=== PATIENT | female | born 1995 | race Caucasian/White ===

== ENCOUNTER 2016-08-10 14:26 | Inpatient (IN) | payer MEDICAID ==
[~2016-08-10] VITALS: Ht 162.6 cm; Wt 63.6 kg
[~2016-08-10 14:26] MED LIST: ONDA4TAB14 PO; PRENAT PO
[2016-08-10 14:35] VITALS: Ht 162.6 cm; Wt 63.6 kg
[2016-08-10 14:37] VITALS: BP 149/100; PULSE 81; RESP 20
[2016-08-10 15:19] LABS: ADD SCAN DIFF NO
[2016-08-10 15:21] LABS: BASOPHILS % 0.5 % (0.0-2.0); EOSINOPHILS # 0.1 10^3/ul (0.0-0.5); EOSINOPHILS % 1.6 % (0.0-7.0); HEMATOCRIT 32.6 % (37.0-47.0); LYMPHOCYTES # 2.3 10^3/ul (0.8-2.9); LYMPHOCYTES % 26.5 % (15.0-51.0); MEAN CORPUSCULAR HEMOGLOBIN 31.3 pg (29.0-33.0); MEAN CORPUSCULAR HGB CONC 33.7 g/dl (32.0-37.0); MEAN CORPUSCULAR VOLUME 92.9 fl (82.0-101.0); MEAN PLATELET VOLUME 10.7 fl (7.4-10.4); MONOCYTE # 0.6 10^3/ul (0.3-0.9); MONOCYTES % 6.8 % (0.0-11.0); NEUTROPHIL # 5.6 10^3/ul (1.6-7.5); NEUTROPHILS % 64.4 % (39.0-77.0); PLATELET COUNT 309 10^3/UL (140-415); RED BLOOD COUNT 3.51 10^6/ul (4.20-5.40); RED CELL DISTRIBUTION WIDTH 13.3 % (11.5-14.5); WHITE BLOOD COUNT 8.7 10^3/ul (4.8-10.8)
[2016-08-10 15:23] LABS: ADD UMIC YES; URINE BILIRUBIN (Dip) NEGATIVE (NEGATIVE); URINE BLOOD (Dip) NEGATIVE (NEGATIVE); URINE COLOR LT. YELLOW (YELLOW); URINE GLUCOSE (Dip) NEGATIVE (NEGATIVE); URINE KETONES (Dip) NEGATIVE (NEGATIVE); URINE LEUKOCYTE ESTERASE (Dip) TRACE (NEGATIVE); URINE NITRITE (Dip) NEGATIVE (NEGATIVE); URINE TOTAL PROTEIN (Dip) 1+ (NEGATIVE); URINE UROBILINOGEN (Dip) 0.2 E.U./dL (0.1-1.0)
[2016-08-10] MEDS ORDERED: LABETALOL 200 MG TAB PO ONE (15:30)
[2016-08-10 15:44] LABS: ALBUMIN 3.9 g/dl (3.3-4.9)
[2016-08-10 15:45] LABS: POTASSIUM 4.1 mmol/L (3.5-5.1)
[2016-08-10 15:47] LABS: ALBUMIN/GLOBULIN RATIO 1.18; BILIRUBIN,INDIRECT 0.1 mg/dl (0-1.1); BILIRUBIN,TOTAL 0.1 mg/dl (0.2-1.3); CREATININE 0.52 mg/dl (0.44-1.00); TOTAL PROTEIN 7.2 g/dl (6.1-8.1); URIC ACID 4.9 mg/dl (3.1-7.9)
[2016-08-10 15:48] LABS: CALCIUM 9.3 mg/dl (8.4-10.2)
[2016-08-10 16:16] LABS: BACTERIA,URINE FEW; SQUAMOUS EPITHELIAL CELL,UR MANY; URINE RBCS 0-2 /HPF (0)
--- NOTE | 2016-08-10 16:23 | HP ---
Date/Time of Note Date/Time of Note DATE: 08/10/16 TIME: 16:18 OB - History Hx of Present Free Text/Dictation admittd through NST for observation of BP >150/100 Chief Complaint: Denies headache , blurred vision, or epigastric pain Last Menstrual Period: Dec 14, 2015 Estimated Due Date: Sep 19, 2016 : 1 Para: 0 Care: Good Care Ultrasounds: Normal mid trimester US Obstetrical Complications: Gestational Hypertension Medical Complications: Other (Patient with cerebral palsy ) Past Family/Social History * Past Medical, Surgical, Family and Obstetric Histories reviewed from chart. Blood Type: A+ Rubella: immune RPR/VDRL: Negative GBS Status: Unknown HBsAG: Negative OB Admission Exam Vital Signs Vital Signs Vital Signs Date Time Temp Pulse Resp B/P Pulse Ox O2 Delivery O2 Flow Rate FiO2 08/10/16 14:37 97.5 81 20 149/100 Room Air Physical Exam HEENT: WNL Heart: Rhythm Normal Lungs: Clear, Equal Abdomen: WNL Extremities: Normal Reflexes: Normal Cervical Dilatation: None Effacement: 0% Station: -3 Membranes: Intact Heart Rate: 140's Accelerations: Accelerations Present Decelerations: No Decelerations Varibility: Moderate Contractions on Admission: None Last 72 hours Lab Results CBC & BMP 08/10/16 15:00 Liver Function Test 08/10/16 15:00 Alanine Aminotransferase (ALT/SGPT) 22 Albumin 3.9 Alkaline Phosphatase 164 H Aspartate Amino Transf (AST/SGOT) 20 Direct Bilirubin 0.00 Total Protein 7.2 OB Assessment/Plan Other Assessment: PIH: R/O severe PIH 34 + weeks gestation Other plan: will start on steroids start on antihypertensives 24 hr urine collection for protein and Cr/Cl RADHA TOWNSEND MD Aug 10, 2016 16:23
[2016-08-10] MEDS ORDERED: BETAMET NA PHOS/AC(6 MG/ML) 5ML INJ IM ONE (16:30)
[2016-08-10] MEDS: LABETALOL 200 MG TAB PO SCH (21:55)
[2016-08-11] MEDS: LABETALOL 200 MG TAB PO SCH ×2 (08:41→21:05)
[2016-08-11] MEDS ORDERED: BETAMET NA PHOS/AC(6 MG/ML) 5ML INJ IM ONE (16:30)
[2016-08-11 17:04] LABS: SCRET 0.52 mg/dl (0.44-1.00); URINE TOTAL PROTEIN 14.5 mg/dl
--- NOTE | 2016-08-11 18:27 | PN ---
Date/Time of Note Date/Time of Note DATE: 08/11/16 TIME: 18:25 OB Subjective Subjective Subjective No C/O H/A , B/V or E/P OB Objective Objective Objective BPs are stable on labetalol general P/E is unchanged HEENT: WNL Heart: Rhythm Normal Lungs: Clear, Equal Abdomen: WNL Extremities: Normal Reflexes: Normal OB Assessment/Plan Other Assessment: PIH at 34 -35 weeks Other plan: eriberto consult in RADHA GARCIA MD Aug 11, 2016 18:26
[2016-08-12] MEDS ORDERED: OXYTOCIN 30 UNITS/LR 500 ML BAG IV ONE (07:00)
[2016-08-12] MEDS: LABETALOL 200 MG TAB PO SCH (08:35)
[2016-08-12] MEDS ORDERED: LACTATED RINGER'S 1,000 ML IV SCH ×3 (12:30→21:12)
[2016-08-12 14:24] LABS: ADD SCAN DIFF NO
[2016-08-12 14:27] LABS: BASOPHILS % 0.1 % (0.0-2.0); HEMOGLOBIN 9.5 g/dl (12.0-16.0); LYMPHOCYTES # 1.3 10^3/ul (0.8-2.9); LYMPHOCYTES % 11.8 % (15.0-51.0); MEAN CORPUSCULAR HGB CONC 32.8 g/dl (32.0-37.0); MEAN CORPUSCULAR VOLUME 94.8 fl (82.0-101.0); MEAN PLATELET VOLUME 10.6 fl (7.4-10.4); MONOCYTE # 0.6 10^3/ul (0.3-0.9); NEUTROPHIL # 9.2 10^3/ul (1.6-7.5); NEUTROPHILS % 82.6 % (39.0-77.0); PLATELET COUNT 268 10^3/UL (140-415); RED BLOOD COUNT 3.06 10^6/ul (4.20-5.40); RED CELL DISTRIBUTION WIDTH 14.1 % (11.5-14.5); WHITE BLOOD COUNT 11.1 10^3/ul (4.8-10.8)
--- NOTE | 2016-08-12 14:33 | RADRPT ---
PROCEDURE: Biophysical profile CLINICAL INDICATION: distress TECHNIQUE: Color and blanco-scale ultrasound images of an intrauterine gestation were obtained. COMPARISON: None FINDINGS: A single live intrauterine gestation is identified in subtalar position with an estimated hear t rate of 137 beats per minute. The placenta is located anteriorly and has a grade 2. The cervix i s obscured by head shadows. No evidence of abruption identified. CHARLEY is 9.3 cm. movement 2/2. tone 2/2. breathing movement 2/2. Qualitative AFV 2/2 Total biophysical profile 01/04 IMPRESSION: 01/04 biophysical profile. RPTAT: AA .Max Kumar MD, Date Time Electronically viewed and signed by .Max Kumar MD, on 08/12/2016 14:32 .P/
[2016-08-12 14:36] LABS: INR 0.89; PARTIAL THROMBOPLASTIN TIME 23.6 Sec (25.0-35.0); PT RATIO 0.9
--- NOTE | 2016-08-12 15:39 | CONS ---
DATE OF ADMISSION: 08/10/2016 DATE OF CONSULTATION: 08/12/2016 HISTORY OF PRESENT ILLNESS: The patient was admitted from the perinatology clinic 2 days ago after blood pressure was 164/110 and the patient had some palpitations. Upon arrival to the hospital, malini arently she was placed on labetalol 200 mg twice a day, and her blood pressures have been in the nor mal to moderate range; however, starting today she started having again severe range blood pressures . PAST MEDICAL HISTORY: Significant for the patient experienced cerebral palsy after and said s he had some left lower extremity movement problems. However, she is very functional and smart. SURGICAL HISTORY: Unaware. ALLERGIES: NO KNOWN DRUG ALLERGIES. REVIEW OF SYSTEMS: Negative, except for what is mentioned above. The last blood pressure I am aware of, she was in the moderate range. PHYSICAL EXAMINATION: Deferred. Liver functions are normal. A 24-hour urine for protein was 235.6 mg. IMPRESSION: Intrauterine at 34 weeks and 4 days, with severe gestational hypertension, un responsive to blood pressure medication. She has higher than normal protein in the urine; however, the total protein in the 24-hour urine is less than 300 mg, but given the age of the patient, which she is young at 21, with her first , positive protein in the urine and severe range blood pressure, she could make the diagnosis for severe preeclampsia. heart tones for the past 24 hours have not been reassuring. They are in the minimal range, at times with very, very low variability, but no decelerations. The baby is intrauterine growth restr icted; however, the umbilical artery Doppler study 2 days ago was normal. RECOMMENDATIONS: Given severe blood pressure range despite medication, as well as at this point con cerning heart tone status, I do recommend delivery. The patient apparently has a problem with her left hip and may not be able to deliver vaginally, and after a discussion with her, if she deci vani to do a , so be it. Magnesium sulfate after delivery is recommended to be continued 24 hours for seizure prophylaxis and since severe preeclampsia is more likely. Dictated By: EDVYN TORREZ MD ST/NTS Conf#: [id number] DID#: [id number]
[2016-08-12] MEDS ORDERED: OXYTOCIN 30 UNITS/LR 500 ML IV SCH ×2 (17:00→21:12)
[2016-08-12] MEDS ORDERED: CEFAZOLIN 2 GM/50 ML (PMX) 50 ML IVPB SCH (17:00)
[2016-08-12] MEDS ORDERED: MISOPROSTOL 200 MCG TAB PR PRN ×2 (17:00→21:30)
[2016-08-12] MEDS ORDERED: METHYLERGONOVINE 0.2 MG INJ IM PRN ×2 (17:00→21:30)
[2016-08-12] MEDS ORDERED: OXYTOCIN 30 UNITS/LR 500 ML IV PRN ×2 (17:00→21:30)
[2016-08-12] MEDS ORDERED: CARBOPROST 250 MCG INJ IM PRN ×2 (17:00→21:30)
[2016-08-12] MEDS ORDERED: PHENYLephrine (100 MCG/ML) 5ML SYG ONE (17:33)
[2016-08-12] MEDS ORDERED: OXYTOCIN 10 UNIT INJ ONE (17:33)
[2016-08-12] MEDS ORDERED: morphine SULFATE/PF (10 MG/10 ML) INJ ONE (17:33)
[2016-08-12] MEDS ORDERED: ONDANSETRON 4 MG INJ ONE (17:33)
--- NOTE | 2016-08-12 17:34 | CONS ---
DATE OF ADMISSION: 08/10/2016 DATE OF CONSULTATION: 08/12/2016 TYPE OF CONSULTATION: Neonatology. REQUESTING PHYSICIAN: RADHA TOWNSEND MD. REASON FOR CONSULTATION: Prematurity with blood pressure problems and decreased variability of the heart rate. HISTORY OF THE PRESENT ILLNESS: Mother is a 21-year-old 1 who has been admitted on 08/11/19 17. Her gestational age today is 34 and 4/7 week. She has cerebral palsy and has had several surge duane. She has completed high school, but was not working. She is . Her was complicated by high blood pressure. She is also on labetalol. S he has received magnesium and has received 2 doses of betamethasone. A decision was to do section because of the decreasing variability and continued blood pressure problems. I spoke to her with the family including and a brother with his girlfriend and grandmother i n the room. I painted possible scenarios of respiratory distress, feeding difficulties, infection, apnea, hyperbilirubinemia and other problems related to prematurity and expected hospital stay until close to the due date or possibly earlier if things go relatively smoothly. By the end of the interview, she had no further questions. Possible need for procedures such as umb ilical arterial and venous catheterization, peripheral arterial catheterization and central venous l pippa as well as a spinal tap and blood transfusions were discussed due to consent needs. She had no further questions at the end of this interview. Thank you very much for allowing me to assist in the care of this family. Dictated By: SUZE ARVIZU/VEL Conf#: [id number] DID#: [id number]
[2016-08-12] MEDS ORDERED: MAGNESIUM SULFATE 20 GM/500 ML 500 ML IV SCH (18:33)
--- NOTE | 2016-08-12 18:33 | OPR ---
Operative Report Planned Procedure Procedure date Aug 12, 2016 Procedure(s) primary C/S Performed by: RADHA TOWNSEND MD Assisting provider: BRUNO SUNG MD Anesthesiologist: GULSHAN BEGUM MD Pre-procedure diagnosis 34 + weeks gesation severe PIH inability to have vaginal delivery (had 2 hip surgeries for cerebral palsy) Anesthesia Type: spinal Procedure Description Under satisfactory anaesthesia a Pfannenstiel incision was made two fingerbreadth above and parallel to the symphysis of pubis. Incision was extended laterally to the border of the Recti muscles on either sides. Incision was carried down with sharp and blunt dissection until fascia was reached. Anterior Recti muscle fascia was incised in mid portion and incision extended laterally to the border of skin incision. Fascia was mobilized from muscle superiorly and Recti muscles were from midline using sharp and blunt dissection. Peritoneum was visualized; Avoiding bowel and bladder it was incised . Incision was extended superiorly and inferiorly. Bladder blade was placed. Posterior peritoneum covering the lower segment of the uterus and lower segment of the uterus were incised. Incision was extended laterally to the border of Round Lig. on either sides and baby was delivered from OP. position . Amniotic fluid appeared clear. Cord blood was obtained and cord had 3 vessels . Placenta was delivered spontaneously and appeared intact and complete. Intrauterine cavity was rubbed with a laparotomy sponge. Uterine incision was closed in 2 layers using running stitches of No1 Monocryl. Hemostasis appeared secure. Ovaries and Fallopian tubes were within normal limits. Announcing needle, lap sponge and instrument count to be correct abdomen was closed in layers as follows: Peritoneum and Recti muscles with running stitches of 20 Vicryl. Fascia with running stitch of No 1 PDS. Subcutaneous tissue with running stitches of 20 Chromic and skin was closed using deep. Patient tolerated the procedure well and was transferred to [facility] in good condition. Post-Procedure Post-procedure diagnosis S/P C/S Findings: Live Baby Specimen removed: No Complications: None Pt Condition post procedure: stable Disposition: PACU Physician Certification I, the undersigned physician, hereby certify that I have discussed the procedure described in this consent form with this patient (or the patient's legal counter sales representative), including: * The risk and benefits of the procedure; * Any adverse reactions that may reasonably be expected to occur; * Any alternative efficacious methods of treatment which may be medically viable ; * The potential problems that may occur during recuperation; * Potential for blood transfusion and associated risks/benefits; and * Any research or economic interest I may have regarding this treatment. I further certify that the patient/legally responsible person was encouraged to ask question and that all questions were answered. RADHA TOWNSEND MD Aug 12, 2016 18:33
[2016-08-12] MEDS ORDERED: MAGNESIUM SULFATE 4 GM/100 ML 100 ML IV SCH ×2 (19:00→20:00)
[2016-08-12] MEDS ORDERED: KETOROLAC 30 MG INJ IV STA (19:54)
[2016-08-12] MEDS ORDERED: LABETALOL 200 MG TAB PO SCH (21:00)
[2016-08-12 21:30] VITALS: BP 161/85; PULSE 103; RESP 18
[2016-08-12] MEDS ORDERED: ACETAMINOPHEN/CODEINE #3 TAB PO PRN ×2 (21:30)
[2016-08-12] MEDS ORDERED: LANOLIN 7 GM TUBE TOP PRN (21:30)
[2016-08-12 22:30] VITALS: BP 145/75; PULSE 88; RESP 18
[2016-08-12 23:40] VITALS: BP 145/79; PULSE 94; RESP 18
[2016-08-13] VITALS (17 sets, daily range): BP systolic 127–162; BP diastolic 75–98; PULSE 77–95; RESP 16–18
[2016-08-13] MEDS: CEFAZOLIN 2 GM/50 ML (PMX) 50 ML IV SCH ×2 (03:57→11:55)
[2016-08-13] MEDS ORDERED: CARBOPROST 250 MCG INJ IM PRN (04:00)
[2016-08-13] MEDS ORDERED: OXYTOCIN 30 UNITS/LR 500 ML IV PRN (04:00)
[2016-08-13] MEDS ORDERED: NA PHOSPHATE/BIPHOS 133 ML ENEMA PR PRN (04:00)
[2016-08-13] MEDS ORDERED: MISOPROSTOL 200 MCG TAB PR PRN (04:00)
[2016-08-13] MEDS ORDERED: LANOLIN 7 GM TUBE TOP PRN (04:00)
[2016-08-13] MEDS ORDERED: METHYLERGONOVINE 0.2 MG INJ IM PRN (04:00)
[2016-08-13] MEDS ORDERED: ACETAMINOPHEN/CODEINE #3 TAB PO PRN (04:00)
[2016-08-13] MEDS: LACTATED RINGER'S 1,000 ML IV SCH ×2 (04:39→14:18)
[2016-08-13] MEDS: MAGNESIUM SULFATE 20 GM/500 ML 500 ML IV SCH (05:50)
[2016-08-13] MEDS: CLINDAMYCIN 300 MG CAP PO SCH ×3 (05:51→17:49)
[2016-08-13 08:19] LABS: ADD SCAN DIFF NO
[2016-08-13 08:28] LABS: BASOPHILS % 0.1 % (0.0-2.0); EOSINOPHILS % 0.1 % (0.0-7.0); HEMATOCRIT 29.8 % (37.0-47.0); HEMOGLOBIN 9.8 g/dl (12.0-16.0); LYMPHOCYTES # 1.8 10^3/ul (0.8-2.9); MEAN CORPUSCULAR HEMOGLOBIN 31.5 pg (29.0-33.0); MEAN CORPUSCULAR HGB CONC 32.9 g/dl (32.0-37.0); MEAN CORPUSCULAR VOLUME 95.8 fl (82.0-101.0); MEAN PLATELET VOLUME 11.1 fl (7.4-10.4); MONOCYTE # 0.8 10^3/ul (0.3-0.9); NEUTROPHIL # 13.4 10^3/ul (1.6-7.5); NEUTROPHILS % 83.3 % (39.0-77.0); PLATELET COUNT 264 10^3/UL (140-415); RED BLOOD COUNT 3.11 10^6/ul (4.20-5.40); RED CELL DISTRIBUTION WIDTH 13.9 % (11.5-14.5); WHITE BLOOD COUNT 16.1 10^3/ul (4.8-10.8)
[2016-08-13] MEDS ORDERED: SENNA/DOCUSATE NA (8.6MG/50MG) TAB PO SCH (09:00)
[2016-08-13] MEDS: LABETALOL 200 MG TAB PO SCH (09:09)
[2016-08-13] MEDS: SENNA/DOCUSATE NA (8.6MG/50MG) TAB PO SCH ×2 (09:10→22:55)
[2016-08-13] MEDS ORDERED: BISACODYL 10 MG SUPP PR PRN (10:00)
[2016-08-13] MEDS: OXYCODONE/ACETAMINOPHEN (5/325) TAB PO PRN (13:30)
--- NOTE | 2016-08-13 15:48 | PN ---
Date/Time of Note Date/Time of Note DATE: 08/13/16 TIME: 15:45 Assessment/Plan VTE Prophylaxis VTE Prophylaxis Intervention: ambulation Lines/Catheters IV Catheter Type (from Nrsg): Peripheral IV Assessment/Plan Assessment/Plan S/P C/S POD # 1 will advance diet and ambulate D/C magnesium sulfate continue labetalol Subjective 24 Hr Interval Summary no BM passing flatus Constitutional: BM, ambulates, flatus, improved, no complaints, urine output Pain Control: well controlled Exam/Review of Systems Vital Signs Vitals Vital Signs Date Time Temp Pulse Resp B/P Pulse Ox O2 Delivery O2 Flow Rate FiO2 08/13/16 13:00 80 18 162/98 08/13/16 12:00 98.5 Room Air 08/13/16 03:12 98 21 Intake and Output 08/12/16 08/12/16 08/13/16 15:00 23:00 07:00 Intake Total 1425 ml 975 ml Output Total 1400 ml 1350 ml Balance 25 ml -375 ml Exam Free Text/Dictation Abdomen: soft BS + Incision: covered Constitutional: alert, oriented, well developed Psych: nl mood/affect, no complaints Head: atraumatic, normocephalic Eyes: EOMI, nl conjunctiva, nl lids, nl sclera ENMT: mucosa pink and moist, nl external ears & nose, nl lips & teeth, nl nasal mucosa & septum Neck: non-tender, supple Respiratory: clear to auscultation, normal air movement Cardiovascular: nl pulses, regular rate and rhythm Gastrointestinal: nl liver, spleen, non-tender, soft Musculoskeletal: nl extremities to inspection, nl gait and stance Extremities: normal pulses 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
[2016-08-13] MEDS: IBUPROFEN 800 MG TAB PO SCH (22:55)
[2016-08-14] VITALS: BP_SYST 148; PULSE 73; RESP 18
[2016-08-14] MEDS: CLINDAMYCIN 300 MG CAP PO SCH ×5 (00:03→23:51)
[2016-08-14] MEDS: OXYCODONE/ACETAMINOPHEN (5/325) TAB PO PRN ×2 (00:04→22:56)
[2016-08-14] MEDS: LABETALOL 200 MG TAB PO SCH ×3 (00:09→20:16)
[2016-08-14] MEDS: CEFAZOLIN 2 GM/50 ML (PMX) 50 ML IV SCH (00:14)
[2016-08-14] MEDS: LACTATED RINGER'S 1,000 ML IV SCH ×2 (00:15→09:14)
[2016-08-14 04:30] VITALS: BP 134/86; PULSE 75; RESP 18
[2016-08-14] MEDS: IBUPROFEN 800 MG TAB PO SCH ×3 (06:41→22:10)
[2016-08-14 07:40] LABS: ADD SCAN DIFF NO
[2016-08-14 07:43] LABS: BASOPHILS % 0.2 % (0.0-2.0); EOSINOPHILS # 0.1 10^3/ul (0.0-0.5); EOSINOPHILS % 0.6 % (0.0-7.0); HEMATOCRIT 28.9 % (37.0-47.0); HEMOGLOBIN 9.6 g/dl (12.0-16.0); LYMPHOCYTES # 1.9 10^3/ul (0.8-2.9); LYMPHOCYTES % 14.6 % (15.0-51.0); MEAN CORPUSCULAR HEMOGLOBIN 31.7 pg (29.0-33.0); MEAN CORPUSCULAR HGB CONC 33.2 g/dl (32.0-37.0); MEAN CORPUSCULAR VOLUME 95.4 fl (82.0-101.0); MEAN PLATELET VOLUME 10.7 fl (7.4-10.4); MONOCYTE # 0.6 10^3/ul (0.3-0.9); MONOCYTES % 4.6 % (0.0-11.0); NEUTROPHIL # 10.4 10^3/ul (1.6-7.5); NEUTROPHILS % 79.5 % (39.0-77.0); PLATELET COUNT 237 10^3/UL (140-415); RED BLOOD COUNT 3.03 10^6/ul (4.20-5.40); RED CELL DISTRIBUTION WIDTH 13.9 % (11.5-14.5)
[2016-08-14 08:00] VITALS: BP 135/81; PULSE 74; RESP 18
[2016-08-14] MEDS: MAGNESIUM SULFATE 20 GM/500 ML 500 ML IV SCH (09:13)
[2016-08-14] MEDS: SENNA/DOCUSATE NA (8.6MG/50MG) TAB PO SCH ×2 (09:15→21:18)
[2016-08-14 11:45] VITALS: BP 148/78; PULSE 76; RESP 18
--- NOTE | 2016-08-14 15:15 | DS ---
Date/Time of Note Date/Time of Note home next day DATE: 08/14/16 TIME: 15:11 Obstetrical Discharge Record Final Diagnosis Final Diagnosis: delivered Other Final Diagnosis S/P C/S Section Section: Primary Primary Indication severe PIH , Unable to deliver mechanically because of 2 hip surgeries Complications Preg induced Hypertension Condition on Discharge Physical Assessment Last Vitals: see nurses notes Voiding: Yes Bowel Movement: Yes Breast: Soft, non-tender, Filling Fundus: Firm Abdomen and Incision: soft BS + Incision: healing well Episiotomy: NA Calf Tenderness: No Patient Condition: Good RADHA TOWNSEND MD Aug 14, 2016 15:14
--- NOTE | 2016-08-14 15:26 | DS ---
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 [employer] 02/27/16 Reported Medications Multivit/Min/Fol Ac/Iron/Pren* ( S*) Unknown Strength Tab, PO DAILY, TAB 02/26/16 Follow-up Plan 2 days in clinic for staple removal Pending Labs Laboratory Tests Test 08/14/16 06:20 Basophils # 0.010^3/ul (0.0-0.1) Basophils % 0.2% (0.0-2.0) Eosinophils # 0.110^3/ul (0.0-0.5) Eosinophils % 0.6% (0.0-7.0) Hematocrit 28.9% (37.0-47.0) Hemoglobin 9.6g/dl (12.0-16.0) Lymphocytes # 1.910^3/ul (0.8-2.9) Lymphocytes % 14.6% (15.0-51.0) Magnesium Level 3.1mg/dl (1.7-2.5) Mean Corpuscular Hemoglobin 31.7pg (29.0-33.0) Mean Corpuscular Hemoglobin Concent 33.2g/dl (32.0-37.0) Mean Corpuscular Volume 95.4fl (82.0-101.0) Mean Platelet Volume 10.7fl (7.4-10.4) Monocytes # 0.610^3/ul (0.3-0.9) Monocytes % 4.6% (0.0-11.0) Neutrophils # 10.410^3/ul (1.6-7.5) Neutrophils % 79.5% (39.0-77.0) Nucleated Red Blood Cells # 0.010^3/ul (0.0-0.0) Nucleated Red Blood Cells % 0.0/100WBC (0.0-0.0) Platelet Count 53247^3/UL (140-415) Red Blood Count 3.0310^6/ul (4.20-5.40) Red Cell Distribution Width 13.9% (11.5-14.5) White Blood Count 13.010^3/ul (4.8-10.8) RADHA TOWNSEND MD Aug 14, 2016 15:25
--- NOTE | 2016-08-14 15:33 | PD.PPDC ---
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 Provider Information Physician Information 21 y/o female had primary C/S Diagnosis Final Diagnosis: S/P C/S Condition Patient Condition: Good Diet Diet: Resume Regular Diet Activity/Restrictions Activity: September Show Restrictions: No Exercising No Lifting Return to Work or School: October 18, 2016 Wound/Drain Care Instructions Wound/Drain Care Instructions: Keep clean and dry Follow-up Follow-up with Physician: 2, Day/Days (for staple removal ) Return to clinic for CANE WEIGHER Instructions: Fever greater than 101 Chills OB Instructions: Breast Tenderness Depression Blurried Vision Headache Surgical Instructions: Incisional Drainage Incisional Redness RADHA TOWNSEND MD Aug 14, 2016 15:33
[2016-08-14] MEDS ORDERED: IBUP800T25 PO (15:36)
[2016-08-14] MEDS ORDERED: LAB200 PO (15:36)
[2016-08-14] MEDS ORDERED: Oxycodone/Acetamin (5/325) PO (15:36)
[2016-08-14 16:00] VITALS: BP 127/92; PULSE 67; RESP 18
[2016-08-14 20:15] VITALS: BP 137/95; PULSE 85; RESP 18
[2016-08-15] VITALS: BP 140/89; PULSE 85; RESP 18
[2016-08-15] MEDS: CLINDAMYCIN 300 MG CAP PO SCH ×2 (05:31→11:27)
[2016-08-15] MEDS: IBUPROFEN 800 MG TAB PO SCH ×2 (05:32→13:51)
[2016-08-15 05:55] LABS: ADD SCAN DIFF NO
[2016-08-15 06:01] LABS: BASOPHILS % 0.2 % (0.0-2.0); EOSINOPHILS # 0.2 10^3/ul (0.0-0.5); EOSINOPHILS % 1.3 % (0.0-7.0); HEMATOCRIT 32.7 % (37.0-47.0); HEMOGLOBIN 10.7 g/dl (12.0-16.0); LYMPHOCYTES # 2.7 10^3/ul (0.8-2.9); LYMPHOCYTES % 17.1 % (15.0-51.0); MEAN CORPUSCULAR HEMOGLOBIN 31.3 pg (29.0-33.0); MEAN CORPUSCULAR HGB CONC 32.7 g/dl (32.0-37.0); MEAN CORPUSCULAR VOLUME 95.6 fl (82.0-101.0); MEAN PLATELET VOLUME 10.3 fl (7.4-10.4); MONOCYTE # 0.6 10^3/ul (0.3-0.9); MONOCYTES % 3.5 % (0.0-11.0); NEUTROPHIL # 12.3 10^3/ul (1.6-7.5); NEUTROPHILS % 77.5 % (39.0-77.0); PLATELET COUNT 269 10^3/UL (140-415); RED BLOOD COUNT 3.42 10^6/ul (4.20-5.40); RED CELL DISTRIBUTION WIDTH 14.2 % (11.5-14.5); WHITE BLOOD COUNT 15.9 10^3/ul (4.8-10.8)
[2016-08-15] MEDS: SENNA/DOCUSATE NA (8.6MG/50MG) TAB PO SCH (08:39)
[2016-08-15 08:40] VITALS: BP 151/106; PULSE 65; RESP 18
[2016-08-15] MEDS: LABETALOL 200 MG TAB PO SCH (08:40)
[2016-08-15 11:30] VITALS: BP 152/108; PULSE 83; RESP 18
[2016-08-15 15:55] VITALS: BP 146/107; PULSE 77; RESP 18
[2016-08-15] MEDS: OXYCODONE/ACETAMINOPHEN (5/325) TAB PO PRN (15:55)
[2016-08-16] MEDS ORDERED: DIPHTH/TET/ACEL PERTUSS (ADULT) 0.5 ML VIAL IM* ONE (09:00)
[2016-08-16] MEDS ORDERED: MEASLES,MUMPS,RUBELLA VACCINE INJ SC* ONE (09:00)
== END 2016-08-15 17:39 | disposition home or self-care (01) | DRG 765 ==
LOC: OBT 14:26 → L-D 14:27 → OBT 15:14 → L-D 15:14 → OBG 16:00 → L-D 08-12 16:38 → PP1 08-12 21:41
PROVIDERS: ADMIT Obstetrics & Gynecology; ATTEND Obstetrics & Gynecology
PROC: 10D00Z1 Extraction of Products of Conception, Low, Open Approach (ICD-10-PCS; principal; 2016-08-12 17:30)
DX: O14.13 Severe pre-eclampsia, third trimester (principal); O33.0 Maternal care for disproportion due to deformity of maternal pelvic bones; O13.3 Gestational [pregnancy-induced] hypertension without significant proteinuria, third trimester; Z37.0 Single live birth; Z3A.34 34 weeks gestation of pregnancy
CPT/HCPCS: 76818; 80053; 81001; 81003; 82575; 83735; 84156; 84560; 85025; 85610; 85730; 86592; 86885; 86900; 86901; 94760; 99464; G0463; J0690; J0702; J1885; J2274; J2370; J2405; J2590; J3475; J7120